=== PATIENT | male | born 2000 | race Caucasian/White ===

== ENCOUNTER 2018-03-19 17:02 | Emergency (ER) | payer OTHER ==
[~2018-03-19 17:02] MED LIST: ALBU8HFA IH
== END 2018-03-19 18:00 | disposition left against medical advice (07) ==
LOC: EMS 17:02
DX: J11.1 Influenza due to unidentified influenza virus with other respiratory manifestations (principal); Z53.21 Procedure and treatment not carried out due to patient leaving prior to being seen by health care provider

== ENCOUNTER 2018-03-19 18:07 | Emergency (ER) | payer OTHER ==
[~2018-03-19] VITALS: Ht 172.7 cm; Wt 81.8 kg
[2018-03-19 18:10] VITALS: BP 132/74
== END 2018-03-19 20:54 | disposition left against medical advice (07) ==
LOC: EMS 18:07
DX: J11.1 Influenza due to unidentified influenza virus with other respiratory manifestations (principal); Z53.21 Procedure and treatment not carried out due to patient leaving prior to being seen by health care provider

== ENCOUNTER 2018-05-14 14:35 | Emergency (ER) | payer OTHER ==
[~2018-05-14] VITALS: Ht 175.3 cm; Wt 86.4 kg
[2018-05-14] MEDS ORDERED: IBUP-14 PO (14:48)
[2018-05-14] MEDS ORDERED: ACETAMINOPHEN 325 MG TABLET PO ONE (15:45)
[2018-05-14 16:27] LABS: INFLUENZA TYPE A POSITIVE FOR TYPE A (NEGATIVE); INFLUENZA TYPE B NEGATIVE FOR TYPE B (NEGATIVE)
[2018-05-14] MEDS ORDERED: IBUPROFEN 800 MG TABLET PO ONE (17:15)
[2018-05-14] MEDS ORDERED: PROMETHAZINE HCL/CODEINE 6.25-10MG/5ML SYRUP UDCUP PO ONE (17:30)
[2018-05-14 17:31] VITALS: BP 116/70
== END 2018-05-14 17:39 | disposition home or self-care (01) ==
LOC: EMS 14:35
DX: J11.1 Influenza due to unidentified influenza virus with other respiratory manifestations (principal)
CPT/HCPCS: 87804